=== PATIENT | female | born 1960 | race Caucasian/White ===

== ENCOUNTER 2018-05-26 12:55 | Observation (INO) ==
--- NOTE | 2018-05-26 15:41 | Internal Med History&Physical ---
Date of Encounter: 05/26/18 Time of Encounter: 15:32 Internal Medicine - H&P: HPI Chief complaint: flu like symptoms Admitted From: Home History of present illness: Ms. Aguilar is a 58 year old female past medical history of COPD, depression, arthritis who had signs and symptoms of flulike illness for past 14 days was transferred from [facility] due to elevated liver enzymes. Patient was relatively fine about 14 days ago. She then started having nausea vomiting and diarrhea. Her diarrhea resolved since past 5 days however continues to have nausea and vomiting which is nonbilious and nonbloody. She denies any sick contacts or eating outside. She is currently not sexually active and has not had any STD in past. She denies any IV drug use, [id number] drug use or herbal medication use. Her current home medications are duloxetine, Percocet, Zantac, albuterol, furosemide. She denies taking Tylenol in the past few weeks. No one in her contact had hepatitis diagnosed. She denies any history of blood transfusion. She does take flu shots every year. Has not received hepatitis a or B vaccination. She did have associated subjective fevers and chills. She is obese and is trying to lose weight with some success her weight has gone down from 281-266 pounds or past 1-2 month. She has had mammograms which were unremarkable. She lives with her granddaughter who had similar illnesses resolved by itself. Patient had a workup at [facility]. Lab test showed unremarkable CBC, INR 1.1 PT 11.5, glucose 209 potassium 3, globulin 4.5, AST 583, AST 228, ALP 172, bilirubin total 7, direct 5.3, lactic acid 1.6, lipase 67, negative troponin, unremarkable UA, pending hepatitis panel, negative influenza A and B, negative hepatitis B surface antigen. EKG was unremarkable, chest x-ray was unremarkable, CT abdomen and pelvis without IV contrast showed fatty liver, small ventral hernia, post cholecystectomy, hip arthritis, no acute intra- abdominal or pelvic finding. Unclear what patient received exactly however patient mentioned she received IV fluids. Doctor's note not available. Patient was in no acute distress during interview. Nausea resolved after she received the medication at [facility]. She denies any chest pain, shortness of breath, abdominal pain, constipation, diarrhea, urinary complaints. She did mention that her urine is dark. Past Med Surg Social Fam HX - Past Medical History Medical history: arthritis, COPD, GERD Psychiatric history: anxiety - Past Surgical History Surgical History: cholecystectomy - Social History Smoking Status: Former smoker Alcohol use: none Drug use: none - Family History Mother Hx Family Respiratory Disorders: Yes (OPD) Hx Family Genitourinary Disorders: Yes (DM) Sister Hx Family Cancer: Yes (breast ca at 37) Internal Medicine - H&P: Meds Allergy/AdvReac Type Severity Reaction Status Date / Time No Known Allergies Allergy Verified 05/26/18 16:16 All Systems PM: A 10-system review of systems was performed and is negative for pertinent findings except as documented above in the HPI. - Constitutional Vitals: Temp Pulse Resp BP Pulse Ox 97.6 F 81 16 114/76 96 05/26/18 15:03 05/26/18 15:03 05/26/18 15:03 05/26/18 15:03 05/26/18 15:03 Exam: Constitutional: Vitals as noted. Conversant. No Apparent Distress. Morbidly Obese. Eyes : Sclera white, conjunctiva clear, no lid lag, PEARLA. ENT : Grossly normal hearing. Oropharyngeal exam unremarkable. Moist mucus membranes. No JVD, no cervical lymphadenopathy. no thyromegaly or mass. Respiratory : Clear to auscultation bilaterally. No accessory muscle use, rales, rhonchi or wheezes Cardiovascular : RRR, +S1, +S2. no murmur, gallop, rubs. No chest wall tenderness GI/Abdominal : Soft, obese, Non-tender, Non-distended, normal bowel sounds, soft, no peritoneal signs. no orgenomegaly or mass appreciated. no hernia. Musculoskeletal: no deformity noted. no edema or cyanosis. warm extremities, pulses palpable and symmetrical in UE/LE. no calf tenderness. Neurological: AO X3, CN II-XII grossly intact, grossly normal motor and sensory exam. Skin: No skin rash, lesions or ulcers noted. Pych: Good insight and judgement. Intact memory. AOx3. Internal Med - H&P Results - Labs Labs: Labs from [facility] reviewed Notable for glucose of 200, AST 228 ALTs 583 ALP 17 due to total bilirubin 7 direct bilirubin 5 hepatitis panel pending - EKG Data -: EKG Interpreted by Myself Rate: normal - Assessment and plan (1) Elevated liver enzymes Current Visit: Yes Status: Acute Assessment and plan: - Patient has elevated ALT, AST, bilirubin and alkaline phosphatase. ALT> AST - Patient has no risk factors for hepatitis B or C. - Patient not taking any medication that would increase liver enzymes - Does not appear to the in fulminant liver failure. currently stable - We will follow-up hepatitis panel. Likely hepatitis A current increased number of cases in the community. There might be some and intubation for eleva bogdan liver enzymes from fatty liver. - We will wait for current workup. We will consider further workup for autoimmune if negative and GI consultation if negative. - Continue supportive management with IV fluids and prn Zofran for nausea vomiting (2) Depression Current Visit: Yes Status: Acute Assessment and plan: - Continue home duloxetine Qualifiers: Qualified Code(s): F32.9 - Major depressive disorder, single episode, unspecified (3) COPD (chronic obstructive pulmonary disease) Current Visit: Yes Status: Acute Assessment and plan: - As needed nebulizers Qualifiers: COPD type: unspecified COPD Qualified Code(s): J44.9 - Chronic obstructive pulmonary disease, unspecified (4) Arthritis Current Visit: Yes Status: Acute Assessment and plan: - Continue home Percocet as needed (5) Hyperglycemia Current Visit: Yes Status: Acute Assessment and plan: - Not known to be diabetic however sugar with 200 - Follow-up HbA1c and CMP in the morning - Time Spent With Patient Total time spent is greater than 50% in coordination of care (as documented) at patient's floor/unit and/or counseling patient:
[2018-05-26] MEDS ORDERED: Ipratropium/Albuterol Neb 3 ML IH PRN (16:25)
[2018-05-26] MEDS ORDERED: *HR* OxyCODONE/APAP 5/325 TABLET PO PRN (16:27)
[2018-05-26] MEDS ORDERED: Naloxone 0.4 MG/ML INJ IVP PRN (16:27)
[2018-05-26] MEDS ORDERED: Ondansetron 4 MG/2 ML VIAL IVP PRN (16:31)
[2018-05-26] MEDS: 0.9 % Sodium Chloride 1,000 ML IVC SCH (16:59)
[2018-05-26 17:41] LABS: Hepatitis B Core IgM Nonreactive (Nonreactive); Hepatitis B Surface Antigen Nonreactive (Nonreactive); Hepatitis C Virus Antibody Nonreactive (Nonreactive)
[2018-05-26 17:53] LABS: Hepatitis A Antibody IgM Reactive (Nonreactive)
[2018-05-27] MEDS: 0.9 % Sodium Chloride 1,000 ML IVC SCH (03:48)
[2018-05-27 04:25] LABS: Basophils % 0.8 %; Eosinophils # 0.1 K/mcL (0.0-0.6); Eosinophils % 2.1 %; Hematocrit 41.7 % (35.3-44.9); Immature Granulocytes % 0.2 % (0-4); Lymphocytes # 1.9 K/mcL (0.6-4.6); Mean Corpuscular HGB Conc 31.2 g/dL (31.6-35.5); Mean Corpuscular Hemoglobin 28.6 pg (28.0-33.3); Mean Corpuscular Volume 91.9 fL (83.0-100.0); Mean Platelet Volume 10.4 fL (9.4-12.4); Monocytes # 0.5 K/mcL (0.0-1.3); Monocytes % 9.5 %; Neutrophils # 2.7 K/mcL (1.6-8.9); Platelet Count 212 K/mcL (140-400); Red Blood Count 4.54 M/mcL (3.82-4.97); Red Cell Distribution Width 14.4 % (11.5-14.5); Segmented Neutrophils % 51.4 %
[2018-05-27 04:45] LABS: Alanine Aminotransferase 359 Units/L (7-52); Albumin 3.2 g/dL (3.5-5.7); Alkaline Phosphatase 147 Units/L (34-104); Aspartate Amino Transferase 130 Units/L (13-39); BUN/Creatinine Ratio 11 (6-26); Bilirubin,Total 6.1 mg/dL (0.3-1.0); Blood Urea Nitrogen 6 mg/dL (6-20); Calcium 8.2 mg/dL (8.6-10.3); Carbon Dioxide 30 mEq/L (23-29); Chloride 103 mEq/L (98-107); Globulin 3.3 g/dL (2.4-3.5); Glucose 97 mg/dL (70-105); Osmolality,Calculated 286 (280-300); Potassium 3.5 mEq/L (3.5-5.1); Sodium 139 mEq/L (136-145); Total Protein 6.5 g/dL (6.4-8.9); eGFR For Non-African Americans > 60 (> 60)
[2018-05-27 05:32] LABS: Platelet Estimate Normal (Normal)
[2018-05-27 06:00] LABS: Estimated Average Glucose 108 mg/dl; Hemoglobin A1C 5.4 %
[2018-05-27 06:28] VITALS: BP 115/63
--- NOTE | 2018-05-27 09:58 | Discharge Summary ---
- NOTES TO OUTPATIENT PROVIDER Notes to Outpatient Provider: Follow-up liver function test in 1-2 weeks. Date of Encounter: 05/27/18 Time of Encounter: 09:55 - Discharge Diagnosis (1) Elevated liver enzymes Priority: Primary Status: Acute (2) Depression Priority: Secondary Status: Acute Qualifiers: Qualified Code(s): F32.9 - Major depressive disorder, single episode, unspecified (3) COPD (chronic obstructive pulmonary disease) Priority: Secondary Status: Acute Qualifiers: COPD type: unspecified COPD Qualified Code(s): J44.9 - Chronic obstructive pulmonary disease, unspecified (4) Arthritis Priority: Secondary Status: Acute (5) Hyperglycemia Priority: Secondary Status: Acute (6) Hepatitis A Priority: Primary Status: Acute Qualifiers: Qualified Code(s): B15.9 - Hepatitis A without hepatic coma Hospital course: Ms. Aguilar is a 58 year old female with PMH of COPD, depression, arthritis came in with flulike symptoms being transferred from another ER facility for elevated LFTs. Patient was found to have positive hepatitis a. Patient without risk factors for other causes of elevated liver enzymes. Patient nausea improved significantly. Tolerated diet well and liver function tests were improving. Testing for diabetes came negative. Discussed about hepatitis a being self-limiting illness . Extensive counseling done on hygienic practices to prevent spread. Discussed about handwashing, adequately cooking food and using bleach for laundry. Patient would be discharged home today to be followed with PCP in 1-2 weeks. Given Zofran for nausea. - Time Spent with Patient Total time spent providing and/or coordinating discharge services: Greater than 30 minutes (35) - Discharge Medications Prescriptions: Ondansetron HCl [Zofran] 4 mg PO Q12HR PRN 3 Days #6 tab PRN Reason: Nausea And Vomiting Home Medications: Albuterol Sulfate [Proventil] 2 mg PO DAILY 05/27/18 [History] Duloxetine HCl [Cymbalta] 60 mg PO DAILY 05/27/18 [History] Furosemide [Lasix] 40 mg PO DAILY PRN 05/27/18 [History] Ipratropium/Albuterol Neb [Duoneb] 3 ml IH Q6H PRN 05/27/18 [History] Ondansetron HCl [Zofran] 4 mg PO Q12HR PRN 3 Days #6 tab 05/27/18 [Rx] OxyCODONE/APAP 5/325 [Percocet 5/325 MG] 1 - 2 tab PO Q6H PRN 05/27/18 [History] Oxygen 2 l IH HS 05/27/18 [History] Ranitidine HCl [Zantac] 300 mg PO HS 05/27/18 [History] Allergies/Adverse Reactions: Allergy/AdvReac Type Severity Reaction Status Date / Time No Known Allergies Allergy Verified 05/26/18 16:16 Date of admission: 05/26/18 14:49 Primary care physician: Riana Box MD Discharging clinician: Dario Navarro - Constitutional Vitals: Temp Pulse Resp BP Pulse Ox 97.6 F 69 14 115/63 94 05/27/18 06:19 05/27/18 06:19 05/27/18 06:19 05/27/18 06:19 05/27/18 06:19 Exam: Constitutional: Vitals as noted. Conversant. No Apparent Distress. Morbidly Obese. Eyes : subconjunctival Sclera mildy jaundice, conjunctiva clear, no lid lag, PEARLA. ENT : Grossly normal hearing. Oropharyngeal exam unremarkable. Moist mucus membranes. No JVD, no cervical lymphadenopathy. no thyromegaly or mass. Respiratory : Clear to auscultation bilaterally. No accessory muscle use, rales, rhonchi or wheezes Cardiovascular : RRR, +S1, +S2. no murmur, gallop, rubs. No chest wall tenderness GI/Abdominal : Soft, obese, Non-tender, Non-distended, normal bowel sounds, s oft, no peritoneal signs. no orgenomegaly or mass appreciated. no hernia. Musculoskeletal: no deformity noted. no edema or cyanosis. warm extremities, pulses palpable and symmetrical in UE/LE. no calf tenderness. Neurological: AO X3, CN II-XII grossly intact, grossly normal motor and sensory exam. Skin: No skin rash, lesions or ulcers noted. mildy icteric in daylight. - Patient Status Disposition: Home, Self-Care Condition: Good - Discharge Instructions Instructions: Viral Hepatitis A (DC), Viral Hepatitis A (GEN) Follow Up With: Riana Box MD [Primary Care Provider] - 11/06/18 1:30 pm (Follow up as scheduled.) - Diet and Activity Activity: resume usual activities as tolerated - VTE Reasons for not Prescribing Prophylaxis: Treatment not Indicated - Low risk for VTE
== END 2018-05-27 15:57 | disposition home or self-care (01) ==
LOC: 3ANU → SUATTDRO 14:49
PROVIDERS: ADMIT Internal Medicine; ATTEND Internal Medicine